=== PATIENT | male | born 2000 | race Caucasian/White ===

== ENCOUNTER 2018-05-07 19:35 | Emergency (ER) | payer BC ==
[~2018-05-07] VITALS: Ht 177.8 cm; Wt 81.6 kg
[2018-05-07 20:41] VITALS: BP 149/86
== END 2018-05-07 20:51 | disposition home or self-care (01) ==
LOC: ER 19:35
DX: M25.521 Pain in right elbow (principal); M77.8 Other enthesopathies, not elsewhere classified
CPT/HCPCS: 99282